=== PATIENT | male | born 1990 | race Caucasian/White ===

== ENCOUNTER 2018-02-28 14:08 | Emergency (ER) | payer OTHER ==
[~2018-02-28] VITALS: Ht 170.2 cm; Wt 82.3 kg
[2018-02-28] MEDS ORDERED: LEXAPRO 10MG10 MG PO (14:27)
[2018-02-28 15:08] LABS: STREP SCREEN NEGATIVE (NEGATIVE)
[2018-02-28] MEDS ORDERED: AUGMENTIN 875-1 EAC1 PO (15:16)
[2018-02-28] MEDS ORDERED: TUSSIONEX PENN115 ML PO (15:49)
[2018-02-28 15:55] VITALS: BP 136/75
== END 2018-02-28 15:55 | disposition home or self-care (01) ==
LOC: ED 14:08
PROVIDERS: Nurse Practitioner Primary Care
DX: J06.9 Acute upper respiratory infection, unspecified (principal); F17.200 Nicotine dependence, unspecified, uncomplicated; Z79.899 Other long term (current) drug therapy
CPT/HCPCS: J1885

== ENCOUNTER 2019-01-12 10:51 | Emergency (ER) | payer OTHER ==
[~2019-01-12] VITALS: Ht 170.2 cm; Wt 88.6 kg
[~2019-01-12 10:51] MED LIST: AUGMENTIN 875-1 EAC1 PO; LEXAPRO 10MG10 MG PO; TUSSIONEX PENN115 ML PO
[2019-01-12] MEDS ORDERED: CYCLOBENZAPRINE10 M1 PO (11:25)
[2019-01-12] MEDS ORDERED: KETOROLAC10 MG PO (11:25)
[2019-01-12 11:43] VITALS: BP 136/97
== END 2019-01-12 11:43 | disposition home or self-care (01) ==
LOC: ED 10:51
DX: M54.5 Low back pain (principal); F41.9 Anxiety disorder, unspecified; F42.9 Obsessive-compulsive disorder, unspecified
CPT/HCPCS: J1885

== ENCOUNTER 2019-03-09 10:12 | Emergency (ER) | payer OTHER ==
[~2019-03-09] VITALS: Ht 170.2 cm; Wt 84.1 kg
[~2019-03-09 10:12] MED LIST changes: +CYCLOBENZAPRINE10 M1 PO; +KETOROLAC10 MG PO
[2019-03-09 10:36] LABS: HEMATOCRIT 42.5 % (42.0-52.0); MEAN CELL VOLUME 93 fl (78-100); MEAN CORPUSCULAR HEMOGLOBIN 31 pg (27-31); MEAN CORPUSCULAR HGB CONC 33 g/dL (33-37); MEAN PLATELET VOLUME 8.8 fl (7.4-10.4); PLATELET COUNT 308 K/mm3 (130-400); RED BLOOD COUNT 4.59 M/mm3 (4.20-5.60); RED CELL DISTRIBUTION WIDTH 13.6 % (11.5-14.5)
[2019-03-09 10:54] LABS: BAND 4 % (0-10); LYMPHOCYTE 6 % (20-51); NEUTROPHILS 84 % (42-75)
[2019-03-09 10:55] LABS: MONOCYTE 5 % (3-10)
[2019-03-09] MEDS ORDERED: GUAIFEN-CODEINE5 ML PO (15:05)
[2019-03-09] MEDS ORDERED: CEFDINIR300 MG PO (15:05)
[2019-03-09] MEDS ORDERED: ZITHROMAX 250M250 MG PO (15:05)
[2019-03-09 15:15] VITALS: BP 123/75
== END 2019-03-09 15:20 | disposition home or self-care (01) ==
LOC: ED 10:12
PROVIDERS: Family Medicine
DX: J18.9 Pneumonia, unspecified organism (principal); F41.9 Anxiety disorder, unspecified
CPT/HCPCS: A4216; J0456; J0696; J7030; J7050